=== PATIENT | male | born 1965 | race Caucasian/White ===

== ENCOUNTER 2021-08-23 16:14 | Emergency (ER) | payer MEDICAID ==
[~2021-08-23] VITALS: Ht 175.3 cm; Wt 80.7 kg
[~2021-08-23 16:14] MED LIST: ACCURETIC 20-11 EACH PO; ATIVAN1 MG PO; CLONAZEPAM 1 MG1 M1 PO; LIPITOR20 MG PO; NEXIUM 40 MG CA40 M1 PO; NORVASC10 MG PO; PAXIL20 MG PO; PERCOCET 5-3251 EACH PO; POTASSIUM20 PO; SLOW-MAG64 MG PO; ULTRAM 50MG TAB50 MG PO
[2021-08-23] MEDS ORDERED: DIAZEPAM 10 MG10 M2 PO (19:42)
[2021-08-23] MEDS ORDERED: AMLODIPINE BESY10 MG PO (19:42)
[2021-08-23] MEDS ORDERED: BUSPIRONE HCL7.5 MG PO (19:43)
[2021-08-23] MEDS ORDERED: GABAPENTIN600 M1 PO (19:43)
[2021-08-23] MEDS ORDERED: FLEXERIL PO (19:43)
[2021-08-23] MEDS ORDERED: FLUOXETINE HCL40 MG PO (19:43)
[2021-08-23] MEDS ORDERED: PROZAC20 MG PO (19:44)
[2021-08-23 20:24] VITALS: BP 142/92
== END 2021-08-23 20:25 ==
LOC: ER 16:14
PROVIDERS: Emergency Medicine
DX: F91.9 Conduct disorder, unspecified (principal); Z20.822 Contact with and (suspected) exposure to COVID-19; I10 Essential (primary) hypertension; F10.10 Alcohol abuse, uncomplicated; Z98.890 Other specified postprocedural states; Z79.899 Other long term (current) drug therapy; Z79.1 Long term (current) use of non-steroidal anti-inflammatories (NSAID); Z79.891 Long term (current) use of opiate analgesic

== ENCOUNTER 2021-08-23 20:50 | Inpatient (IN) | payer MEDICAID ==
[~2021-08-23] VITALS: Ht 182.9 cm; Wt 81.4 kg
[2021-08-23 20:28] VITALS: BP 145/81
[~2021-08-23 20:50] MED LIST changes: +AMLODIPINE BESY10 MG PO; +BUSPIRONE HCL7.5 MG PO; +DIAZEPAM 10 MG10 M2 PO; +FLEXERIL PO; +FLUOXETINE HCL40 MG PO; +GABAPENTIN600 M1 PO; +PROZAC20 MG PO
--- NOTE | 2021-08-23 23:24 | NUR ---
ADMISSION SUMMARY Pt was admitted to [facility] on 08/23/21 at 2027. Pt was cooperative with admission process. Vital signs were obtained; pt's blood pressure was 145/81. Skin assessment performed; pt has several adair on his body where he appears to have picked at his skin. Picked skin is scabbed over and no wounds are draining. Pt also has some edema to his left lower arm; this was diagnosed as cellulitis by [facility] and pt is recieving doxycycline. Wounds are photographed and in chart. Pt stated he brought himself to the hospital because he has worms crawling in and out of his skin. Pt stated a worm has crawled inside his penis. Pt recieved 10mg valium while in the ED before transferring to the floor. Pt went to sleep shortly after arriving. Pt was provided with toiletries, water, and offered a snack. Pt signed in voluntarily before falling asleep. Hospitalist communication center operator was notified.
[2021-08-24 06:35] LABS: CHOLESTEROL 150 mg/dL (<200); HDL CHOLESTEROL 51 mg/dL (>40); LDL CHOLESTEROL 69 mg/dL (<100); TC:HDL 2.9 Ratio (Not establshd); TRIGLYCERIDE 154 mg/dL (<150); VLDL 31 mg/dL (<40)
[2021-08-24 06:44] LABS: SERUM ASSESSMENT Clear
[2021-08-24 09:21] VITALS: BP 152/96
[2021-08-24 09:27] LABS: CALCIUM 8.3 mg/dL (8.5-10.1); MAGNESIUM 1.9 mg/dL (1.8-2.4); POTASSIUM 3.9 mmol/L (3.5-5.1)
--- NOTE | 2021-08-24 10:36 | NUR ---
New admit to [facility] for unspecified psychosis, hallucination. On regular diet and ate 100% of first meal. BMI 24. B12 and A1C pending. Presents low nutrition risk at this time. Follow intake and wt trends for weekly team meeting.
--- NOTE | 2021-08-24 10:43 | NUR ---
08-24-2021--0945--Treatment team meeting this date. Delusions. Not seen yet. Will do assessment with doctor. Lives alone in low income apartments by [address], in [facility].
[2021-08-24 11:26] LABS: ALBUMIN 2.8 g/dL (3.4-5.0); DIRECT BILIRUBIN < 0.1 mg/dL (<0.1-0.2); SGOT 28 U/L (15-37); SGPT 35 U/L (30-65); TOTAL BILIRUBIN 0.2 mg/dL (0.2-1.0); TOTAL PROTEIN 6.1 g/dL (6.4-8.2)
--- NOTE | 2021-08-24 15:41 | EKG ---
[address] [place] [address] ELECTROCARDIOGRAM REPORT Name: DEAN REYNA Room #: 522A- ADM IN ..#: [id number] Admission: 08/23/21 Attend Phys: Terry Jama DO Discharge: Date of : 67 Report #: [id number] [facility] Test Date: 2021-08-24 Test Time: 11:07:12 Pat Name: DEAN REYNA Department: Room: 52 A Gender: M Cemetery Laborer: TATI : 1965 Requested By: Terry Jama Order Number: [id number] : Estiven Lozoya Measurements Intervals [place] Rate: 64 P: 25 UT: 178 QRS: 23 QRSD: 81 T: 44 QT: 415 QTc: 428 Interpretive Statements Sinus rhythm Compared to ECG 11/22/2011 14:37:34 Sinus tachycardia no longer present Electronically Signed On 08-24-2021 15:40:58 [employer] by Estiven Lozoya [email or web address] <ELECTRONICALLY SIGNED> By: Estiven Lozoya MD, [facility] 08/24/21 1540 1107 [id number] Estiven Lozoya MD, FACC /EPI
--- NOTE | 2021-08-24 16:30 | NUR ---
Patient care resummed, patient located in his room resting piecefully upon rounds. Patient reported going to Myth withdrawl, as well as having tactial hallucinations; stating he has worms crawling in his skin. A&O*4, abdomen soft nondistended with bowel sounds present, lung sounds are clear, VSS, on room air, ambulatory without assistance, continent of B&B, and medications whole. Wounds noted to ULE from possible itching at the "worms." as well as a rash on the patients back, TURKEY EGG GATHERER and LEGAL PARAPROFESSIONAL assessed and was termed as possible allergic reaction. Hydroclodzine cream and clartin have been perscribed. Pt denies SI/HI/AVH, although states he is having some anxiety, depression, and pain. Pain described as "all over" and "pins & needles." Labs were ordered and reviewed, will continue to monitior patient for safety, behaviors, and S&S of withdrawl.
[2021-08-24 19:05] VITALS: BP 157/96
--- NOTE | 2021-08-25 00:27 | NUR ---
At onset of shiftman pt was resting in bed. This shift pt was alert and oriented x4. Overall pt was calm, pleasant and cooperative. Pt was compliant with vital signs and medications. Pt asked about receiving cyclobenzaprine, but this medication was not ordered for HS. Pt shared with advertising copywriter that he feels he may be on the wrong type of unit for himself. Pt stated he is in the hospital for mental issues, but the other patients here are older and have physical issues. Pt stated he has some social anxiety, but he feels okay going to groups since the groups are small. Pt stated he will try the Haldol and see how he feels. Pt denied SI, HI and AVH. Pt denied seeing any worms today. Pt requested items to shower in the morning. Pt is a low fall risk. Will continue to monitor.
[2021-08-25 01:06] LABS: GLYCOHEMOGLOBIN (HGB A1C) 5.2 % (4.8-5.6)
[2021-08-25 08:51] VITALS: BP 145/86
[2021-08-25 10:50] VITALS: BP 145/86
[2021-08-25 11:06] VITALS: BP 145/86
--- NOTE | 2021-08-25 12:12 | NUR ---
RESUMMED CARE FROM OVERNIGHT SHIFT THIS AM, PATIENT IN DAYROOM SITTING QUIET. PATIENT ATE BREAKFAST TOOK MEDICATION WITHOUT INCIDENCE. PATIENT ALERT ORIENTED TIMES 4 PATIENT DENIES SI/HI/AH/VH AT PRESENT. PATIENT STATES HE DOES NOT FEEL LIKE WORMS IS CRAWLING IN HIS ARMS. PATIENTS STATES HE HAS SOME DEPRESSION HE RATES A 5, HIS ANXIETY IS A A 7. PATIENTS ABDOMEN SOFT BOWEL SOUNDS PRESENT, PATIENTS LUNGS CLEAR. PATIENT CALM COOPERATIVE PARTICIPATES IN GROUP. WILL CONTINUE TO MONITOR PATIENT FOR SAFETY AND BEHAVIORS.
--- NOTE | 2021-08-25 17:01 | NUR ---
MIKE met with the Pt and Dr. Turcios via phone. The Pt expressed wanting to be discharged tommorrow. Pt stated he feels the medication is working and he is no longer seeing the worms crawl out of his skin. Dr. Turcios expressed that the Pt would need psychiatric follow up sooner than 3 months. Pt expressed understanding of this need. Pt was informed that if an earlier appointment is avaliable discharge could be Sunday. Pt had no other questions or concerns at this time. MIKE was able to get in contact with the otpt psychiatric clinic at , . MIKE was informed the Pt had an appointment with Dr. King in Oct 2021. However they were able to get the Pt an appointment with Dr. Mendoza for hospital follow up on 09/02/2021 @ 8:30 AM. Pt was informed of this information and discharge was set for 08/26/2021 @ 1pm. Pt will be transported home via taxi.
[2021-08-25 19:05] VITALS: BP 123/70
[2021-08-25 20:38] VITALS: BP 123/70
--- NOTE | 2021-08-26 03:58 | NUR ---
Navneet was alert and oriented x4 this shift. He was noted laying down in his room at the start of the shift but was awake when approached with HS medications. He was medication compliant, without difficulty. He asked for a snack and was able to make his needs known appropriately. He expressed he was looking forward to going home the following day and felt ready to discharge. He denied SI/HI/CANSECO and remained safe throughout the shift. He denied physical symptoms and slept throughout the night. Will continue to monitor.
[2021-08-26] MEDS ORDERED: DOXYCYCLINE HYC50 MG PO (09:32)
[2021-08-26] MEDS ORDERED: PROZAC20 M1 PO (09:35)
[2021-08-26] MEDS ORDERED: HALOPERIDOL 5 MG5 MG PO (09:36)
[2021-08-26] MEDS ORDERED: DIAZEPAM 10 MG10 M1 PO (09:38)
[2021-08-26] MEDS ORDERED: PROTONIX40 M2 PO (09:41)
[2021-08-26] MEDS ORDERED: VITAMIN B-121000 MC2 SUBLING (09:43)
--- NOTE | 2021-08-26 10:12 | NUR ---
Alert and orientated X4. Denies SI/HI. States he is feeling anxious this AM, requesting valium. Rates it as 8/10. States he is not anxious about going home but looking forward to going home to clean apartment. States he has used amphetamines twice and will refuse if offered again. Breath sounds clear. Reg HR auscultated. Color pink with brisk capillary refill and palpable peripheral pulses. No edema noted. Independent with voiding. Active bowel sounds over soft, rounded abdomen. States he had BM yesterday. Ambulates with regular, steady gait.
[2021-08-26 10:19] VITALS: BP 144/92
[2021-08-26 10:27] VITALS: BP 144/92
[2021-08-26 10:44] VITALS: BP 144/92
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
== END 2021-08-26 11:20 | disposition home or self-care (01) | DRG 885 ==
LOC: SBH 20:50
PROVIDERS: ADMIT Psychiatry & Neurology Psychiatry; ATTEND Psychiatry & Neurology Psychiatry
DX: F22 Delusional disorders (principal); L03.114 Cellulitis of left upper limb; L03.113 Cellulitis of right upper limb; F41.1 Generalized anxiety disorder; F29 Unspecified psychosis not due to a substance or known physiological condition; Z20.822 Contact with and (suspected) exposure to COVID-19; Z60.2 Problems related to living alone; K21.9 Gastro-esophageal reflux disease without esophagitis; I10 Essential (primary) hypertension; F40.00 Agoraphobia, unspecified; F19.10 Other psychoactive substance abuse, uncomplicated; F15.10 Other stimulant abuse, uncomplicated; Z88.6 Allergy status to analgesic agent; Z79.899 Other long term (current) drug therapy
CPT/HCPCS: 10880